=== PATIENT | male | born 1940 | race Caucasian/White ===

== ENCOUNTER 2017-09-22 07:19 | Inpatient (IN) ==
--- NOTE | 2017-09-21 21:47 | Discharge Summary ---
<Colleen Esteban - Last Filed: 09/22/17 08:50> Date of Encounter: 09/22/17 - Discharge Diagnosis (1) Status post total hip replacement, right Priority: Primary Status: Acute (2) Arthritis of right hip Priority: Primary Status: Chronic (3) History of HI (myocardial infarction) Priority: Secondary Status: Chronic (4) HTN (hypertension) Priority: Secondary Status: Chronic Qualifiers: Hypertension type: essential hypertension Qualified Code(s): I10 - Essential (primary) hypertension (5) HLD (hyperlipidemia) Priority: Secondary Status: Chronic Qualifiers: Hyperlipidemia type: pure hypercholesterolemia Qualified Code(s): E78.00 - Pure hypercholesterolemia, unspecified; E78.0 - Pure hypercholesterolemia (6) ST segment changes on electrocardiogram Priority: Secondary Status: Chronic (7) CKD (chronic kidney disease) stage 2, GFR 60-89 ml/min Priority: Secondary Status: Chronic (8) DMII (diabetes mellitus, type 2) Priority: Secondary Status: Chronic Qualifiers: Diabetes mellitus complication status: without complication Diabetes mellitus longterm insulin use: unspecified nurse tech insulin use status Qualified Code(s): E11.9 - Type 2 diabetes mellitus without complications - Discharge Medications Home Medications: OxyCODONE Immed Rel [Roxicodone 5 MG] 5 mg PO Q6HR PRN 7 Days #28 tablet [Rx] Aspirin Enteric Coated [Aspirin EC] 325 mg PO BID #20 tablet.dr 09/22/17 [Rx] Cinnamon Bark [Cinnamon] 500 mg PO 09/22/17 [History] Finasteride [Proscar] 5 mg PO DAILY 09/22/17 [History] Glimepiride [Amaryl] 4 mg PO BID 09/22/17 [History] Lactobacillus Combination No.8 [Adult Probiotic] 1 cap PO DAILY 09/22/17 [ History] Liraglutide [Victoza 3-Rajendra] 1.2 mg SQ DAILY 09/22/17 [History] Lisinopril [Zestril] 40 mg PO DAILY 09/22/17 [History] Lovastatin 40 mg PO HS 09/22/17 [History] [place]-3/Dha/Epa/Fish Oil [Fish Oil 1,000 mg Softgel] 1 cap PO DAILY 09/22/17 [ History] Pioglitazone [Actos] 15 mg PO DAILY 09/22/17 [History] Tamsulosin [Flomax] 0.4 mg PO DAILY 09/22/17 [History] Tramadol HCl [Ultram] 50 mg PO TID PRN 09/22/17 [History] Vit C/E/Zn/Coppr/Lutein/Zeaxan [Preservision Areds 2 Softgel] 1 cap PO DAILY [History] Allergies/Adverse Reactions: 3 Allergy/AdvReac Type Severity Reaction Status Date / Time atorvastatin Allergy Rash Verified 09/22/17 07:51 iodine Allergy Rash Verified 09/22/17 07:51 levofloxacin [From Levaquin] Allergy Rash Verified 09/22/17 07:51 niacin Allergy Rash Verified 09/22/17 07:51 sulfamethoxazole Allergy Rash Verified 09/22/17 07:51 [From Bactrim] trimethoprim [From Bactrim] Allergy Rash Verified 09/22/17 07:51 Primary care physician: Jos Grimaldo CNP - Patient Status Disposition: Home, Self-Care Condition: Good - Discharge Instructions Follow Up With: Jos Grimaldo CNP [Primary Care Provider] - - Hospital Course Hospital course: Mr. Garrett is a 76 year old male - Time Spent with Patient Total time spent providing and/or coordinating discharge services: <Georges Perez - Last Filed: 09/23/17 06:22> Date of Encounter: 09/23/17 Time of Encounter: 06:22 - Discharge Diagnosis (1) Status post total hip replacement, right Priority: Primary Status: Acute (2) Arthritis of right hip Priority: Primary Status: Chronic (3) History of HI (myocardial infarction) Priority: Secondary Status: Chronic (4) HTN (hypertension) Priority: Secondary Status: Chronic Qualifiers: Hypertension type: essential hypertension Qualified Code(s): I10 - Essential (primary) hypertension (5) HLD (hyperlipidemia) Priority: Secondary Status: Chronic Qualifiers: Hyperlipidemia type: pure hypercholesterolemia Qualified Code(s): E78.00 - Pure hypercholesterolemia, unspecified; E78.0 - Pure hypercholesterolemia (6) ST segment changes on electrocardiogram Priority: Secondary Status: Chronic (7) CKD (chronic kidney disease) stage 2, GFR 60-89 ml/min Priority: Secondary Status: Chronic (8) DMII (diabetes mellitus, type 2) Priority: Secondary Status: Chronic Qualifiers: Diabetes mellitus complication status: without complication Diabetes mellitus longterm insulin use: unspecified longterm insulin use status Qualified Code(s): E11.9 - Type 2 diabetes mellitus without complications Primary care physician: Jos Grimaldo CNP - Patient Status Functional capacity at discharge: uses cane/walker Overall status at discharge: patient is progressing back to baseline - Hospital Course Hospital course: Mr. Garrett is a 76 year old male Status post right total hip replacement The patient had an uneventful postoperative course. They received antibiotics and physical therapy and were discharged in stable condition. There will follow -up in the office in 2 weeks. - Time Spent with Patient Total time spent providing and/or coordinating discharge services:
[2017-09-22] MEDS ORDERED: CeFAZolin Syr 2,000MG/20 ML 2,000 MG/20 ML SYRINGE IVPB ONE (07:40)
[2017-09-22] MEDS ORDERED: Acetaminophen IV 1,000 MG/100 ML INFUS..BTL IVPB ONE (07:42)
[2017-09-22] MEDS ORDERED: Plasma-Lyte A (PH 7.4) 1,000 ML IVC SCH (07:45)
--- NOTE | 2017-09-22 07:50 | History & Physical Report ---
Date of Encounter: 09/22/17 Time of Encounter: 07:50 24 Hour HP Update - Instructions Instructions: If the History and Physical is less than 30 days old and was completed prior to A.M. admission and or procedure and has NOT been updated on calendar day of procedure please complete this update prior to performing procedure. - Update Patient reports changes in Medical Condition: No Changes in examination, assessment, or condition: No Changes in Medication: No Preop tests/diagnostics Reviewed: Yes Surgery Remains Indicated: Yes Consent for Planned Operative Procedure(s) Verified: Yes - Pre-Operative Checklist Preoperative Checklist Indicated: No Prophylactic Antibiotic Ordered: Yes Is VTE Prophylaxis Indicated?: Yes
[2017-09-22] MEDS ORDERED: Ethanol\\Acetic Acid\\Na Ace\\Ben 1,000 ML IRRIG.SOLN IR ONE (07:52)
--- NOTE | 2017-09-22 07:58 | Anesthesia Evaluation PreOp ---
Date of Encounter: 09/22/17 Time of Encounter: 07:53 - Past History Planned Operation: R total hip arthroplasty robotic Cardiac History: [place] (1995, moderate aortic stenosis), HTN, Hyperlipidemia, Other (Impression: Pharmacologic stress ECG is negative for ischemia at level of heart rate achieved. Gated EF = 59%. Small sized, moderate intensity, fixed basal to mid inferior perfusion defect possibly due to a prior infarct. Perfusion imaging was negative for ischemia. EV/EV echocardiogram Impressions: LVEF 60%. Normal LV chamber size, wall thickness and function. Asymmetric hypertrophy of the basal septum. No LVOT obstruction. Mild left ventricular diastolic dysfunction. Normal right ventricular structure and function. Aortic valve not well visualized. Moderately calcified aortic valve leaflets. Mild to moderate aortic stenosis suggested by Doppler. Mean gradient 19 mmHg. Unable to estimate RVSP due to lack of TR jet.) Pulmonary History: Denies Any Significant HX VINYL INSTALLER History: Denies Any Significant HX Other Medical History: Renal (CKD), Diabetes Type II, GERD Anesthesia History: No Prior Anesthetic Complications, Past Anesthesia (L shoulder, vasectomy, colonoscopy, LHC) Alcohol Use: none Drug use: none Medications and Allergies Aspirin Enteric Coated [Aspirin EC] 325 mg PO BID #20 tablet. 09/21/17 [Rx] OxyCODONE Immed Rel [Roxicodone 5 MG] 5 mg PO Q6HR PRN 7 Days #28 tablet [Rx] Cinnamon Bark [Cinnamon] 500 mg PO 09/22/17 [History] Finasteride [Proscar] 5 mg PO DAILY 09/22/17 [History] Glimepiride [Amaryl] 4 mg PO BID 09/22/17 [History] Lactobacillus Combination No.8 [Adult Probiotic] 1 cap PO DAILY 09/22/17 [ History] Liraglutide [Victoza 3-Rajendra] 1.2 mg SQ DAILY 09/22/17 [History] Lisinopril [Zestril] 40 mg PO DAILY 09/22/17 [History] Lovastatin [Lovastatin] 40 mg PO HS 09/22/17 [History] [place]-3/Dha/Epa/Fish Oil [Fish Oil 1,000 mg Softgel] 1 cap PO DAILY 09/22/17 [ History] Pioglitazone [Actos] 15 mg PO DAILY 09/22/17 [History] Tamsulosin [Flomax] 0.4 mg PO DAILY 09/22/17 [History] Tramadol HCl [Ultram] 50 mg PO TID PRN 09/22/17 [History] Vit C/E/Zn/Coppr/Lutein/Zeaxan [Preservision Areds 2 Softgel] 1 cap PO DAILY [History] 3 Allergy/AdvReac Type Severity Reaction Status Date / Time atorvastatin Allergy Rash Verified 09/22/17 07:51 iodine Allergy Rash Verified 09/22/17 07:51 levofloxacin [From Levaquin] Allergy Rash Verified 09/22/17 07:51 niacin Allergy Rash Verified 09/22/17 07:51 sulfamethoxazole Allergy Rash Verified 09/22/17 07:51 [From Bactrim] trimethoprim [From Bactrim] Allergy Rash Verified 09/22/17 07:51 - Meds/Allergy Pre-op Review Medications Reviewed: Yes Allergies Reviewed: Yes Beta Blockers on Current Med List: No Anesthesia Results - Labs Laboratory Tests 09/01/17 09/01/17 09/01/17 08:29 08:29 08:31 WBC 3.8 L Hgb 13.7 Hct 39.2 Plt Count 170 PT INR APTT Sodium 138 D Potassium 4.3 Chloride 103 Carbon Dioxide 29 BUN 18 Creatinine 1.06 Glucose 143 H Est Mean Plasma Glucose 137 Hemoglobin A1c 6.4 H 09/08/17 11:39 WBC Hgb Hct Plt Count PT 11.3 INR 1.1 APTT 29.8 Sodium Potassium Chloride Carbon Dioxide BUN Creatinine Glucose Est Mean Plasma Glucose Hemoglobin A1c - Imaging EKG: report reviewed ( Interpretive Statements SINUS RHYTHM INFERIOR MYOCARDIAL INFARCTION, PROBABLY OLD POSSIBLE ANTEROLATERAL MYOCARDIAL INFARCTION , OF INDETERMINATE AGE Electronically Signed On 09-09-2017 9:10:33 EST by Emmanuel Tinoco MD) Anesthesia Exam O2 Sat Height 1.88 m Height 1.88 m Height 1.88 m Weight 103.873 kg Weight 103.873 kg Weight 103.873 kg O2 Sat by Pulse Oximetry 97 Vital Signs Temp Pulse Resp BP Pulse Ox 97.8 F 89 18 146/86 97 09/22/17 07:56 09/22/17 07:56 09/22/17 07:56 09/22/17 07:56 09/22/17 07:56 Height: 74" Weight: 229lbs NPO (# of Hours): >8 - HEENT Pupil (Motor): Pupils equal, EOMI Mallampati: III Denture Type: Upper: Complete, Lower: Complete Oral Opening: Greater than 3 - VINYL INSTALLER LOC: Oriented VINYL INSTALLER Motor: Normal RUE, Normal LUE, Normal RLE, Normal LLE, Normal Face VINYL INSTALLER Sensory: Normal: RUE, LUE, RLE, LLE, Face - Cardiac Rhythm: Regular - Pulmonary Breath Sounds: bilateral Clear Respiratory Effort: Symmetrical Anesthesia Assess/Plan ASA Score: 3 (HTN, [place], moderate aortic stenosis, DM) Modified Ramo Scale for Level of Consciousness: Cooperative, oriented, and tranquil Anesthetic Plan: General (r/b/a discussed, questions answered, consent obtained) Monitoring Plan: Standard Monitors Recovery Plan: PACU
[2017-09-22] MEDS ORDERED: Lidocaine -MPF 2% 2 ML VIAL ONE ×2 (08:06)
[2017-09-22] MEDS ORDERED: *HR* FentaNYL (PF) 100 MCG/2 ML VIAL ONE ×4 (08:06→09:14)
[2017-09-22] MEDS ORDERED: *HR* PHENYLEPHRINE 1,000 MCG/10 ML SYRINGE IVP ONE (08:06)
[2017-09-22] MEDS ORDERED: Ketorolac 30 MG/ML VIAL ONE (08:06)
[2017-09-22] MEDS ORDERED: Ondansetron 4 MG/2 ML VIAL ONE (08:06)
[2017-09-22] MEDS ORDERED: *HR* Propofol 200 MG/20 ML VIAL IVP ONE (08:06)
[2017-09-22] MEDS ORDERED: *HR* Midazolam HCl 2 MG/2 ML VIAL ONE (08:06)
[2017-09-22] MEDS ORDERED: Dexamethasone 4 MG/ML VIAL ONE (08:06)
[2017-09-22] MEDS ORDERED: *HR* Promethazine 25 MG/ML VIAL IVP PRN (09:02)
[2017-09-22] MEDS ORDERED: *HR* HYDROmorphone (PF) 1 MG/ML SYRINGE IVP PRN (09:02)
[2017-09-22] MEDS ORDERED: MORPHINE SUL Oral CONC 10 MG/0.5 ML ORAL.SYG SL PRN (09:02)
--- NOTE | 2017-09-22 09:32 | Orthopedic Operative Note ---
Date of procedure: 09/22/17 Pre-op diagnosis: Right hip arthritis Post-op diagnosis: same Procedure: Procedure: Right Total Hip Replacment robotic-assisted Estimated blood loss: 200 cc Hardware: Metal and polyethylene replacement. [place] DM Cup: 62 cup Femoral size 9 stem Head: 0 head with [place] Procedural Notes: Grade 4 arthritic changes femoral head acetabular socket, procedure performed with robotic assistance.The patient 1 mm longer on the operative side as measured by CAT scan Operative procedure: The patient was brought to the operating room and placed on the operating room table. After general anesthesia was administered the patient was placed in the lateral decubitus position with the operative leg up. All pressure points were padded appropriately and the head was stabilized in the neutral position. The operative extremity was prepped and draped in the sterile surgical fashion patient received IV antibiotic prior to skin incision. 3 Steinmann pins were placed in the iliac crest 3 cm proximal to the anterior superior iliac spine this was for the robotic-assisted sensor. This was done through a small 2 cm incision. A standard posterior approach is made to the operative hip, the incision was made through the skin and subcutaneous tissue hemostasis was obtained with Bovie cautery. Using careful sharp dissection the fascia was identified and incised exposing the external rotators. The femoral checkpoint was placed leg length was measured at this time utilizing robotic assistance. The external rotators were released off the greater trochanter and tagged with # 2 FiberWire suture. The capsule was T'd open and the hip was brought into internal rotation. Patient noted to have grade 4 arthritic changes femoral head. The femoral neck cut was made at the appropriate level roughly Xmm proximal to the lesser trochanter aced on preoperative templating. An anterior capsulotomy was performed for the anterior retractor. Soft tissues removed from the acetabulum. Patient noted to have grade 4 arthritic changes acetabulum. The acetabulum checkpoint was placed confirmed. The acetabulum was then mapped with robotic assistance. Based on the preoperative plan the acetabulum was reamed in one step with a 61 reamer. The 62 acetabulum was impacted with robotic assistance and 40 degrees of abduction and 20 degrees of anteversion. The hip was brought back in to internal rotation and prepared with the box spring upholsterer followed by the canal finder followed by the reaming process to a size 9/ 10 broaching process in 20 degrees anteversion. It was broached up to the appropriate size 9. Trial reduction revealed leg lengths close to normal. The femoral implant was impacted in place in 20 degrees of anteversion. Trial reduction found the hip to be stable with 0 head and [place]. The trials were removed and the real implants were impacted in place. The hip was reduced, patient had robotic confirmed leg length of 3 mm longer mm longer than the contralateral side. The hip had excellent stability with forward flexion to 90 degrees adduction of 30 degrees and internal rotation of 60 degrees. The hip had no shuck. The hips after 2 minutes with a antimicrobial solution. It was irrigated out with 2 L of pulse irrigation. The checkpoints were removed, Steinmann pins were removed. The hip was closed by the PA. The deep tissue was irrigated and closed deep with #1 PDS suture superficially with 0 PDS suture and skin was closed with Dermabond and zip tie. The patient was placed in a sterile dressing and abduction pillow. The patient was extubated and transferred to the recovery room in stable condition. Surgeon: Georges Perez Was there an medical assistant per diem present: No Estimated blood loss (cc): 200 Condition: stable Disposition: PACU
[2017-09-22] MEDS ORDERED: Ondansetron 4 MG/2 ML VIAL IVP PRN (10:58)
[2017-09-22] MEDS ORDERED: Dextrose Gel 15 GM/37.5 ML TUBE PO PRN ×2 (10:58)
[2017-09-22] MEDS ORDERED: D5% in Water 1,000 ML IVC PRN (10:58)
[2017-09-22] MEDS ORDERED: Temazepam 15 MG CAPSULE PO PRN (10:58)
[2017-09-22] MEDS ORDERED: Naloxone 0.4 MG/ML INJ IVP PRN (10:58)
[2017-09-22] MEDS ORDERED: *HR* Dextrose 50 % in Water (Syg) 50 ML SYRINGE IVP PRN (10:58)
[2017-09-22] MEDS ORDERED: MOM Conc 10 ML UD.LIQ PO PRN (10:58)
[2017-09-22] MEDS ORDERED: Sennosides 8.6 MG TABLET PO PRN (10:58)
--- NOTE | 2017-09-22 11:01 | Anesthesia Evaluation Post Op ---
Date of Encounter: 09/22/17 Time of Encounter: 11:00 - Vital Signs Vital Signs: Vital Signs/O2 Sat, Most Current Temp Pulse Resp BP Pulse Ox 98.1 F 85 20 163/84 94 09/22/17 10:51 09/22/17 10:51 09/22/17 10:51 09/22/17 10:51 09/22/17 10:51 - Lungs Lungs: Clear Ascult./Percussion - Airway Airway: Non-obstructed - Cardiovascular Regular Rate - Mental Status Mental Status: Alert & Oriented, Answers Appropriately - Nausea Vomiting Nausea Vomiting: Not Present - Hydration Hydration: NPO - Discharge PostOp Status: Transfer Patient to floor
[2017-09-22] MEDS: Ascorbic Acid 500 MG TABLET PO SCH ×2 (11:39→17:09)
[2017-09-22] MEDS: Insulin LISPRO 300 UNITS/3 ML VIAL SQ SCH ×3 (11:39→21:26)
[2017-09-22] MEDS: Ringers Solution, Lactated 1,000 ML IVC SCH ×2 (11:40→17:11)
[2017-09-22] MEDS: Multivit/Ca/Min/Fe/FA 1 TAB TABLET PO SCH (11:40)
[2017-09-22] MEDS: *HR* OxyCODONE Immed Rel 5 MG TABLET PO PRN ×2 (11:40→19:15)
[2017-09-22] MEDS: CeFAZolin Premix DUPLEX 2,000 MG/50 ML BAG IVPB SCH ×2 (14:49→21:33)
[2017-09-22] MEDS: Lisinopril 20 MG TABLET PO SCH (14:52)
[2017-09-22 16:53] LABS: Hematocrit 37.1 % (37.5-50.1); Hemoglobin 12.6 g/dL (12.9-16.9)
[2017-09-22] MEDS: *HR* Enoxaparin 30 MG/0.3 ML SYRINGE SQ SCH (17:09)
[2017-09-22] MEDS ORDERED: *HR* Enoxaparin 30 MG/0.3 ML SYRINGE SQ SCH (18:00)
[2017-09-22] MEDS: *HR* Glimepiride 4 MG TABLET PO SCH (21:26)
[2017-09-23] MEDS: *HR* OxyCODONE Immed Rel 5 MG TABLET PO PRN ×5 (02:48→20:16)
[2017-09-23 05:02] LABS: Hematocrit 35.7 % (37.5-50.1); Hemoglobin 12.2 g/dL (12.9-16.9)
--- NOTE | 2017-09-23 06:23 | Orthopedics Progress Note ---
Date of Encounter: 09/23/17 Time of Encounter: 06:23 - Assessment and Plan (1) Status post total hip replacement, right Current Visit: No Status: Acute (2) Arthritis of right hip Current Visit: No Status: Chronic (3) History of MD (myocardial infarction) Current Visit: Yes Status: Chronic (4) HTN (hypertension) Current Visit: Yes Status: Chronic Qualifiers: Hypertension type: essential hypertension Qualified Code(s): I10 - Essential (primary) hypertension (5) HLD (hyperlipidemia) Current Visit: Yes Status: Chronic Qualifiers: Hyperlipidemia type: pure hypercholesterolemia Qualified Code(s): E78.00 - Pure hypercholesterolemia, unspecified; E78.0 - Pure hypercholesterolemia (6) ST segment changes on electrocardiogram Current Visit: Yes Status: Chronic (7) CKD (chronic kidney disease) stage 2, GFR 60-89 ml/min Current Visit: Yes Status: Chronic (8) DMII (diabetes mellitus, type 2) Current Visit: Yes Status: Chronic Qualifiers: Diabetes mellitus complication status: without complication 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 Afebrile vital signs stable. Operative extremity: Neurovascularly intact Dressing clean dry and intact Calves nontender Assessment and plan: Continue with postoperative care Hematocrit 35 Objective Vital signs: Vital Signs Temp Pulse Resp BP Pulse Ox 09/23/17 03:44 98.4 F 90 18 148/81 97 09/23/17 00:11 98.1 F 98 17 110/70 97 09/22/17 21:26 101 09/22/17 19:52 98.3 F 101 17 112/71 97 09/22/17 14:46 98.1 F 91 16 116/74 97 09/22/17 14:05 155/74 09/22/17 12:47 97.6 F 95 16 179/94 94 09/22/17 11:50 97.7 F 82 15 154/81 94 09/22/17 11:00 97.8 F 79 16 173/85 97 09/22/17 10:51 98.1 F 85 20 163/84 94 09/22/17 10:41 80 20 172/87 94 09/22/17 10:31 97.9 F 80 12 183/100 96 09/22/17 10:21 79 12 171/90 100 09/22/17 10:11 75 10 164/84 94 09/22/17 10:01 98.1 F 87 12 180/97 96 09/22/17 07:56 97.8 F 89 18 146/86 97 Intake and Output 09/22/17 09/22/17 09/23/17 15:59 23:59 07:59 Intake Total 50 / 50 1050 / 1050 430 / 430 Output Total 300 / 300 250 / 250 260 / 260 Balance -250 / -250 800 / 800 170 / 170 Intake: IV Fluids 50 / 50 1050 / 1050 Lactated Ringers 1,000 ML @ 75 1000 / 1000 mls/hr IVC .[id number] ANGY Rx#: [id number] Ancef Premix DUPLEX 2,000 mg In 50 / 50 50 / 50 50 ml @ 100 mls/hr IVPB Q8H ANGY Rx#:[id number] Oral 430 / 430 Output: Urine 100 / 100 250 / 250 260 / 260 Estimated Blood Loss 200 / 200 Other: Blood Glucose* 292 255 - Labs CBC & BMP: 09/23/17 04:31 Labs: Abnormal lab results Hgb 12.2 g/dL (12.9-16.9) L 09/23/17 04:31 Hct 35.7 % (37.5-50.1) L 09/23/17 04:31 POC Glucose 255 (58-89) H 09/22/17 19:45 - VTE Documentation of Mechanical Device: Venous foot pump, device Consult Discharge Plan - Plan Referrals: Jos Grimaldo, [employer]CHO[employer] LIBRARIAN [Primary Care Provider] -
[2017-09-23 07:13] LABS: BUN/Creatinine Ratio 16 (6-26); Blood Urea Nitrogen 17 mg/dL (8-23); Calcium 8.5 mg/dL (8.6-10.3); Carbon Dioxide 28 mEq/L (23-29); Chloride 98 mEq/L (98-107); Glucose 210 mg/dL (70-105); Osmolality,Calculated 282 (280-300); Potassium 4.3 mEq/L (3.5-5.1); Sodium 132 mEq/L (136-145); eGFR For African Americans > 60 (> 60); eGFR For Non-African Americans > 60 (> 60)
[2017-09-23] MEDS: (Liraglutide [Victoza 3-Pak] 1.2 MG) SQ SCH (07:31)
[2017-09-23] MEDS: Insulin LISPRO 300 UNITS/3 ML VIAL SQ SCH ×4 (07:38→20:22)
[2017-09-23] MEDS: Lactobacillus 1 EACH CAP.SPRINK PO SCH (07:39)
[2017-09-23] MEDS: Multivit/Ca/Min/Fe/FA 1 TAB TABLET PO SCH (07:39)
[2017-09-23] MEDS: Finasteride 5 MG TABLET PO SCH (07:39)
[2017-09-23] MEDS: Ascorbic Acid 500 MG TABLET PO SCH ×2 (07:39→16:40)
[2017-09-23] MEDS: *HR* Enoxaparin 30 MG/0.3 ML SYRINGE SQ SCH ×2 (07:39→16:40)
[2017-09-23] MEDS: *HR* Pioglitazone 15 MG TABLET PO SCH (07:40)
[2017-09-23] MEDS: Lisinopril 20 MG TABLET PO SCH (07:40)
[2017-09-23] MEDS: *HR* Glimepiride 4 MG TABLET PO SCH ×2 (07:40→20:15)
[2017-09-23] MEDS ORDERED: Lisinopril 20 MG TABLET PO SCH (09:00)
[2017-09-23] MEDS ORDERED: NON-FORMULARY MEDICATION 1 EACH EACH (Vit C/E/Zn/Coppr/Lutein/Zeaxan [Preservision Areds 2 PO SCH (09:00)
[2017-09-24] MEDS: *HR* OxyCODONE Immed Rel 5 MG TABLET PO PRN ×3 (01:47→11:19)
[2017-09-24 01:56] LABS: Hematocrit 30.7 % (37.5-50.1)
[2017-09-24 01:57] LABS: Hemoglobin 10.6 g/dL (12.9-16.9)
[2017-09-24 02:29] LABS: BUN/Creatinine Ratio 19 (6-26); Blood Urea Nitrogen 26 mg/dL (8-23); Calcium 8.2 mg/dL (8.6-10.3); Carbon Dioxide 27 mEq/L (23-29); Chloride 96 mEq/L (98-107); Glucose 231 mg/dL (70-105); Osmolality,Calculated 280 (280-300); Potassium 4.2 mEq/L (3.5-5.1); Sodium 129 mEq/L (136-145); eGFR For African Americans > 60 (> 60); eGFR For Non-African Americans 50 (> 60)
[2017-09-24] MEDS: *HR* Enoxaparin 30 MG/0.3 ML SYRINGE SQ SCH (05:21)
--- NOTE | 2017-09-24 06:44 | Orthopedics Progress Note ---
Date of Encounter: 09/24/17 Time of Encounter: 06:43 - Assessment and Plan (1) Status post total hip replacement, right Current Visit: No Status: Acute (2) Arthritis of right hip Current Visit: No Status: Chronic (3) History of [place] (myocardial infarction) Current Visit: Yes Status: Chronic (4) HTN (hypertension) Current Visit: Yes Status: Chronic Qualifiers: Hypertension type: essential hypertension Qualified Code(s): I10 - Essential (primary) hypertension (5) HLD (hyperlipidemia) Current Visit: Yes Status: Chronic Qualifiers: Hyperlipidemia type: pure hypercholesterolemia Qualified Code(s): E78.00 - Pure hypercholesterolemia, unspecified; E78.0 - Pure hypercholesterolemia (6) ST segment changes on electrocardiogram Current Visit: Yes Status: Chronic (7) CKD (chronic kidney disease) stage 2, GFR 60-89 ml/min Current Visit: Yes Status: Chronic (8) DMII (diabetes mellitus, type 2) Current Visit: Yes Status: Chronic Qualifiers: Diabetes mellitus complication status: without complication Diabetes mellitus petroleum terminal plant operator insulin use: unspecified mcc insulin use status Qualified Code(s): E11.9 - Type 2 diabetes mellitus without complications Subjective Interval history: Patient was seen this morning doing well without complaints. Afebrile vital signs stable. Operative extremity: Neurovascularly intact Dressing clean dry and intact Calves nontender Assessment and plan: Continue with postoperative care Hematocrit 30 discharged today Objective Vital signs: Vital Signs Temp Pulse Resp BP Pulse Ox 09/24/17 05:04 98.5 F 98 14 119/73 94 09/23/17 23:48 99.1 F 89 16 142/84 95 09/23/17 20:17 97.5 F L 86 17 101/60 96 09/23/17 17:16 100/56 96 09/23/17 15:28 98.4 F 89 18 104/64 96 09/23/17 11:23 98.5 F 91 16 109/69 95 09/23/17 08:40 103/62 09/23/17 06:58 99.0 F 94 18 124/71 93 Intake and Output 09/23/17 09/23/17 09/24/17 15:59 23:59 07:59 Intake Total 480 / 480 1100 / 1100 450 / 450 Output Total 100 / 100 125 / 125 700 / 700 Balance 380 / 380 975 / 975 -250 / -250 Intake: Oral 480 / 480 1100 / 1100 450 / 450 Output: Urine 100 / 100 125 / 125 700 / 700 Other: Meal Lunch Percent of Meal Consumed 100% Blood Glucose* 250 255 - Labs CBC & BMP: 09/24/17 01:27 09/24/17 01:27 Labs: Abnormal lab results Hgb 10.6 g/dL (12.9-16.9) L D 09/24/17 01:27 Hct 30.7 % (37.5-50.1) L 09/24/17 01:27 Sodium 129 mEq/L (136-145) L 09/24/17 01:27 Chloride 96 mEq/L (98-107) L 09/24/17 01:27 BUN 26 mg/dL (8-23) H 09/24/17 01:27 Creatinine 1.40 mg/dL (0.70-1.30) H 09/24/17 01:27 Est GFR (Non-Af Amer) 50 (> 60) L 09/24/17 01:27 Glucose 231 mg/dL (70-105) H 09/24/17 01:27 POC Glucose 255 (58-89) H 09/23/17 20:21 Calcium 8.2 mg/dL (8.6-10.3) L 09/24/17 01:27 - VTE Documentation of Mechanical Device: Venous foot pump, device Consult Discharge Plan - Plan Referrals: Oscar Encarnacion MD [Partnered Physician] - 12/04/17 9:45 am Georges Perez MD [Partnered Physician] - 10/22/17 5:20 pm Colleen Esteban, PAC [Physician Crew Caller] - 10/02/17 1:00 pm Jos Grimaldo CNP [Primary Care Provider] - 12/05/17 4:00 pm
[2017-09-24] MEDS: *HR* Glimepiride 4 MG TABLET PO SCH (07:15)
[2017-09-24] MEDS: Finasteride 5 MG TABLET PO SCH (07:15)
[2017-09-24] MEDS: *HR* Pioglitazone 15 MG TABLET PO SCH (07:15)
[2017-09-24] MEDS: Lactobacillus 1 EACH CAP.SPRINK PO SCH (07:16)
[2017-09-24] MEDS: (Liraglutide [Victoza 3-Pak] 1.2 MG) SQ SCH (07:16)
[2017-09-24] MEDS: Ascorbic Acid 500 MG TABLET PO SCH (07:16)
[2017-09-24] MEDS: Lisinopril 20 MG TABLET PO SCH (07:16)
[2017-09-24] MEDS: Multivit/Ca/Min/Fe/FA 1 TAB TABLET PO SCH (07:16)
[2017-09-24] MEDS: Insulin LISPRO 300 UNITS/3 ML VIAL SQ SCH ×6 (07:22→16:31)
[2017-09-24 14:48] VITALS: BP 104/63
--- NOTE | 2017-09-24 16:54 | Physician Discharge Referral ---
ExtendedCare Referral Info Transfer To: [facility] Provider in Charge: Dr Perez - Diagnosis (1) Status post total hip replacement, right Priority: Primary Status: Acute (2) History of AL (myocardial infarction) Priority: Secondary Status: Chronic (3) HTN (hypertension) Priority: Secondary Status: Chronic (4) HLD (hyperlipidemia) Priority: Secondary Status: Chronic (5) CKD (chronic kidney disease) stage 2, GFR 60-89 ml/min Priority: Secondary Status: Chronic (6) DMII (diabetes mellitus, type 2) Priority: Secondary Status: Chronic Expected Duration of Placement: less than 30 days Prognosis: Good Aware of Diagnosis: Patient Aware of Prognosis: Patient - Transfer Medications Home Medications: OxyCODONE Immed Rel [Roxicodone 5 MG] 5 mg PO Q6HR PRN 7 Days #28 tablet [Rx] Aspirin Enteric Coated [Aspirin EC] 325 mg PO BID #20 tablet. 09/22/17 [Rx] Cinnamon Bark [Cinnamon] 500 mg PO 09/22/17 [History] Finasteride [Proscar] 5 mg PO DAILY 09/22/17 [History] Glimepiride [Amaryl] 4 mg PO BID 09/22/17 [History] Lactobacillus Combination No.8 [Adult Probiotic] 1 cap PO DAILY 09/22/17 [ History] Liraglutide [Victoza 3-Rajendra] 1.2 mg SQ DAILY 09/22/17 [History] Lisinopril [Zestril] 40 mg PO DAILY 09/22/17 [History] Lovastatin 40 mg PO HS 09/22/17 [History] [place]-3/Dha/Epa/Fish Oil [Fish Oil 1,000 mg Softgel] 1 cap PO DAILY 09/22/17 [ History] Pioglitazone [Actos] 15 mg PO DAILY 09/22/17 [History] Tamsulosin [Flomax] 0.4 mg PO DAILY 09/22/17 [History] Tramadol HCl [Ultram] 50 mg PO TID PRN 09/22/17 [History] Vit C/E/Zn/Coppr/Lutein/Zeaxan [Preservision Areds 2 Softgel] 1 cap PO DAILY [History] Allergies/Adverse Reactions: 3 Allergy/AdvReac Type Severity Reaction Status Date / Time atorvastatin Allergy Rash Verified 09/22/17 07:51 iodine Allergy Rash Verified 09/22/17 07:51 levofloxacin [From Levaquin] Allergy Rash Verified 09/22/17 07:51 niacin Allergy Rash Verified 09/22/17 07:51 sulfamethoxazole Allergy Rash Verified 09/22/17 07:51 [From Bactrim] trimethoprim [From Bactrim] Allergy Rash Verified 09/22/17 07:51 - Respiratory Orders Smoking Cessation: Smoking cessation has been advised. For more information, call the [place] Tobacco Quit Line at 9-959-BMNO-NOW. - Ancillary Orders May use pressure relief devices daily prn, May go on IRVING w/family/respon democrat w /meds at nurse discretion PRN, May consult with Dentist, Bag Filler, Hand I Tube Bender PRN - Mobility Orders Chair, Ambulate - Rehabiliation Orders Rehab Potential: Good Rehab Orders: Evaluation for Physical Therapy, Evaluation for Occupational Therapy Other: Total Hip replacement Precautions Apply cold therapy 3-6x/day for 20 minutes at a time. Encourage ambulation throughout the day and incentive spirometer 10x/hour. Elevate affected extremity as tolerated. Brace: Wear hip abduction pillow when laying/sleeping - Treatments Skin tear care topically daily PRN per policy List/Other: Opsite placed. Keep dressing intact until first follow up appointment. If > 50% saturated, notify office, remove dressing and place appropriate dressing back in place. Leave Zipline intact. Opsite dressing is water resistant, not water- proof. OK to shower, but do not get dressing wet. - Diet Orders Regular CERTIFICATION: I certify that the transfer of the above named patient to an Extended Care Facility is necessary for the continuing treatment of the diagnosis listed. The above information is true and accurate reflection of patient's current condition. Confidential - Redisclosure prohibited without a patient's written consent.
--- NOTE | 2017-09-24 17:08 | Event Note ---
Date of Encounter: 09/23/17 Time of Encounter: 12:30 PCR- POD#1 R THR robotic Perez 09/22/17 PCR - Patient seen at bedside. Pain control: Adequate Participating in PT. All questions and concerns addressed. Educated on use of incentive spirometer, ambulation, and hydration. Patient educated on post-operative restrictions and care. Addressed: Dizziness/nausea - patient believes his blood sugars have been more elevated since surgery. States he normally runs 90-130 however this morning his sugars have been between 200-300. Will adjust his sliding scale to help with improved meal coverage. Patient on carb controlled diet. D/C plan: [facility]
== END 2017-09-24 18:15 | disposition home or self-care (01) | DRG 470 ==
LOC: SAMDAY 07:19 → 3NENU 11:07
PROVIDERS: ADMIT Orthopaedic Surgery; ATTEND Orthopaedic Surgery